=== PATIENT | female | born 1985 | race Caucasian/White ===

== ENCOUNTER 2021-11-20 10:27 | Emergency (ER) | payer SELFPAY ==
[2021-11-20] VITALS (7 sets, daily range): BP systolic 111–145; BP diastolic 65–87; PULSE 62–75; RESP 12–16; TEMP 37; O2SAT 96–99; BMI 24.9
--- NOTE | 2021-11-20 10:58 | ED_ITS ---
HPI - General: Chief complaint: OB/Uterine Contractions Stated complaint: and bleeding Time Seen by Provider: 11/20/21 10:32 Limitations: language barrier History of Present Illness: Ms Braun is a 36-year-old lady without significant past medical history presents to the emergency department due to vaginal bleeding while . She apparently had a miscarriage approximately 5 months ago and last menstrual period was in September. She has had a positive test and is approximately 2 months by her estimation. Starting yesterday she had some light spotting as well as lower abdominal cramping and radiation to the back. Denies associated urinary symptoms. Denies other associated systemic signs of illness. Intensity symptoms is mild to moderate. Amount of bleeding is less than a normal period. Other than her miscarriage no other reported complications in previous pregnancies. No other exacerbating relieving factors identified. History is somewhat limited by language barrier. The brother of the patient's sajan is at bedside and speaks Stateless as well as Pakistani. Unfortunately our normal phone that does interpretation is missing. Onset (ago): day(s) Pain Consistency: intermittent Location: pelvis Severity: mild Quality: Cramping Radiation: other Vaginal bleeding: light Patient : Yes OB History - Current : no complications OB History - Previous Pregnancies: other Associated symptoms: Reports no associated symptoms Related Data: : 6 Review of Systems General: Reports: 10 or more systems reviewed and unremarkable except in HPI and below PFSH ED PFSH: Medical History (Updated 11/20/21 @ 16:30 by Jonathon Johnston MD) No significant past medical history Surgical History (Updated 11/20/21 @ 11:21 by Jonathon Johnston MD) No significant past surgical history Social History (Updated 11/20/21 @ 11:21 by Jonathon Johnston MD) Smoking and tobacco status: never smoked Female Reproductive History: : 6 Physical Exam Const: COMMON NORMALS: alert GENERAL APPEARANCE: cooperative and well developed HENMT: COMMON NORMALS: normocephalic and atraumatic HEAD & SCALP: normocephalic and atraumatic Eye: COMMON NORMALS: conjunctivae normal CONJUNCTIVA: Yes conjunctivae normal SCLERA: sclerae normal Neck/C-Spine: COMMON NORMALS: supple GENERAL: Yes trachea midline Resp: COMMON NORMALS: normal respiratory effort and clear to auscultation bilaterally EFFORT & INSPECTION: Yes able to speak in complete sentences AUSCULTATION: clear to auscultation bilaterally Cardio: COMMON NORMALS: regular rate and regular rhythm RATE: regular rate RHYTHM: regular rhythm GI: COMMON NORMALS: Soft to palpation PALPATION: Yes Soft to palpation, Yes Tenderness to palpation present (GI) Details: other (suprapubic), No Guarding due to palpation present (GI) and No Rigid due to palpation : OTHER: Pelvic exam performed with percussion instructor present. External genitals unremarkable, vagina normal without lesions, scant blood in vaginal vault. Small amount of yellowish liquid discharge in the vagina. Cervix identified and closed without abnormality identified There is right adnexal tenderness to bimanual exam. Extremity: GENERAL: Yes normal exam except as noted and No edema Neuro: COMMON NORMALS: moves all extremities SENSORIUM/ORIENTATION: Yes alert and No Orientation impaired Psych: COMMON NORMALS: mental status grossly normal and Normal thought process present THOUGHT PROCESS: Normal thought process present Course ED course: - Patient was seen and evaluated by me at bedside - Patient placed on cardiac monitors, IV access obtained - Initial evaluation notable for exam as above - For initial [facility] telephone environmental geologist services unavailable however for subsequent portions including verification after of [facility] telephone environmental geologist service used. - Labs notable for no leukocytosis. Beta hCG is negative. - Pelvic exam performed and based on adnexal tenderness imaging is warranted. Clue cells identified on wet prep. Patient will be treated for bacterial vaginosis - Imaging notable for ovarian cysts and right ovarian follicles - Upon serial reexamination after treatment the patient was similar - Based on patient history, evaluation, labs, and imaging as interpreted the most likely cause of the patient's condition is unclear. If she had a accurate positive test she appears to have had a miscarriage though given negative beta hCG this is likely not the explanation for her symptoms. Bacterial vaginosis is present and will be treated. - The results of ED evaluation were discussed with the patient by telephone environmental geologist services including prescriptions and/or symptomatic cares (if applicable) including appropriate and responsible use, followup plan, and return precautions. The patient verbalized understanding and felt safe for discharge. All questions answered. - Patient discharged in satisfactory condition. Note: Click bubbles or prepopulated cordero in note writing are used for assistance with data collection and billing and are inherently more limited than narrative and other text portions of this note. Please use narrative for additional cl inical history and defer to narrative/free test for any case of contradictory information. If information appears in only free text or click bubble it should be considered present or absent as reported. Please contact note chart writer for clarifications of clinical information or contradictory information. MDM is a brief summary, contradictory or erroneous seeming information should be clarified and full note should be reviewed. Vital Signs: Vital signs: Vital Signs Temperature 98.6 F 11/20/21 10:36 Pulse Rate 62 11/20/21 15:00 Respiratory Rate 12 11/20/21 13:14 Blood Pressure 127/87 11/20/21 16:00 Pulse Oximetry 96 11/20/21 16:00 MDM - OB/Uterine Contractions Medical Decision Making 36-year-old lady with reported history of positive test presenting with 2-day history of abdominal pain and vaginal bleeding. Beta hCG negative. Ultrasound negative. Clue cells present on wet prep. Patient satisfactory for outpatient management with antibiotics and PCP follow-up. Medical Records I reviewed the patient's medical records. Lab Data I reviewed the patient's lab results. : 11/20/21 11:13 11/20/21 11:13 Radiology Impressions Transvaginal US 11/20/21 13:07 IMPRESSION: 1. LEFT ovarian cyst with daughter cyst. The entire complex measures 3.9 x 4.0 x 2.2 cm. 2. Small RIGHT ovarian follicles. Laboratory Results WBC 5.7 10^3/uL (4.0-10.0) 11/20/21 11:13 RBC 3.92 10^6/uL (4.1-5.3) L 11/20/21 11:13 Hgb 11.6 g/dL (11.5-15.3) 11/20/21 11:13 Hct 35.4 % (37.0-47.0) L 11/20/21 11:13 MCV 90.3 fl (81-99) 11/20/21 11:13 MCH 29.6 pg (28.0-34.0) 11/20/21 11:13 MCHC 32.8 g/dL (30.0-36.0) 11/20/21 11:13 RDW 13.6 % (12.1-15.1) 11/20/21 11:13 Plt Count 176 10^3/cmm (130-400) 11/20/21 11:13 MPV 12.0 fL (7.4-10.4) H 11/20/21 11:13 Neut % (Auto) 57.6 % 11/20/21 11:13 Lymph % (Auto) 30.9 % 11/20/21 11:13 [facility] % (Auto) 7.4 % 11/20/21 11:13 Eos % (Auto) 3.0 % 11/20/21 11:13 Baso % (Auto) 0.7 % 11/20/21 11:13 Neut # (Auto) 3.28 10^3/uL (1.8-7.7) 11/20/21 11:13 Lymph # (Auto) 1.8 10^3/uL (0.8-4.8) 11/20/21 11:13 [facility] # (Auto) 0.4 10^3/uL (0.2-0.9) 11/20/21 11:13 Eos # (Auto) 0.2 10^3/uL (0.0-0.8) 11/20/21 11:13 Baso # (Auto) 0.0 10^3/uL (0.0-0.1) 11/20/21 11:13 Nucleated RBC % (auto) 0 % 11/20/21 11:13 Nucleated RBCs # 0.0 /100WBC 11/20/21 11:13 Sodium 140 mmol/L (136-145) 11/20/21 11:13 Potassium 3.9 mmol/L (3.5-5.1) 11/20/21 11:13 Chloride 107 mmol/L (98-107) 11/20/21 11:13 Carbon Dioxide 23 mmol/L (22-29) 11/20/21 11:13 Anion Gap 13.9 (5-19) 11/20/21 11:13 BUN 14 mg/dL (6-20) 11/20/21 11:13 Creatinine 0.5 mg/dL (0.5-0.9) 11/20/21 11:13 GFR Calculation 141.2 mL/min (90-130) H 11/20/21 11:13 Glucose 91 mg/dL (65-115) 11/20/21 11:13 Calculated Osmolality 290 mOsm/kg (285-295) 11/20/21 11:13 Calcium 9.2 mg/dL (8.5-10.5) 11/20/21 11:13 Total Bilirubin 0.3 mg/dL (0.15-1.2) 11/20/21 11:13 AST 20 U/L (0-32) 11/20/21 11:13 ALT 19 U/L (0-33) 11/20/21 11:13 Alkaline Phosphatase 70 IU/L (35-105) 11/20/21 11:13 Total Protein 6.7 g/dL (6.6-8.7) 11/20/21 11:13 Albumin 4.0 g/dL (3.5-5.2) 11/20/21 11:13 Globulin 2.7 g/dL (1.3-4.6) 11/20/21 11:13 Lipase 36 U/L (13-60) 11/20/21 11:13 Ser , Semi-Qnt 0.50 mIU/mL 11/20/21 11:13 Urine Color Yellow (Yellow) 11/20/21 11:20 Urine Appearance Clear (CLEAR) 11/20/21 11:20 Urine pH 6 (5-7) 11/20/21 11:20 Ur Specific [place] 1.020 (1.005-1.030) 11/20/21 11:20 Urine Protein Neg (Negative) 11/20/21 11:20 Urine Glucose (UA) Norm (Normal) 11/20/21 11:20 Urine Ketones Negative (Negative) 11/20/21 11:20 Urine Blood 2+ (Negative) H 11/20/21 11:20 Urine Nitrate Negative (Negative) 11/20/21 11:20 Urine Bilirubin Neg (Negative) 11/20/21 11:20 Urine Urobilinogen Neg mg/dL (Negative) 11/20/21 11:20 Ur Leukocyte Esterase Negative (Negative) 11/20/21 11:20 Urine RBC Rare /hpf (0-2) 11/20/21 11:20 Urine WBC Rare /hpf (0-5) 11/20/21 11:20 Ur Squamous Epith Cells 0-4 /hpf (0-5) H 11/20/21 11:20 Amorphous Sediment 1+ /hpf 11/20/21 11:20 Urine Bacteria Trace /hpf (NONE) 02/10/22 11:20 Urine Mucus 1+ /hpf 11/20/21 11:20 Blood Type O Positive 11/20/21 11:13 Rho(D) Type Positive 11/20/21 11:13 Discharge Plan Discharge Patient Disposition: Home Clinical Impression: Abdominal pain, Abnormal vaginal bleeding, Bacterial vaginosis, Miscarriage, Hematuria Condition: Stable Prescriptions: New Flagyl 500 mg tablet 500 mg PO BID 7 Days Qty: 14 0RF Discharge Orders: Discharge ED (Routine); Ordered 11/20/21 Ordered By: Jonathon Johnston Discharge Diet: Usual diet Discharge Activity: Resume usual activity Patient Instructions: Miscarriage (ED), Bacterial Vaginosis (ED), Abdominal Pain (ED) Activity Restrictions/Additional Instructions: You for visiting the emergency department. You were seen and evaluated for abdominal pain and vaginal bleeding. Your test in the emergency department is negative. It is unclear whether your previously positive test was an error or if at some point you had a miscarriage. You do have bacterial vaginosis which will be treated with antibiotics and can cause the cramping and bleeding that you are describing. This is not a sexually transmitted infection however is an infection caused by imbalance and normal bacteria within the vagina. Ultrasound did reveal left-sided ovarian cysts. I recommend follow-up with a [facility] OPERATOR physician. Ovarian cysts are usually benign however at times require further evaluation. Please follow-up with your primary care provider. Please establish with a primary care provider if you do not currently have one. Please return to the emergency department for worsening symptoms, uncontrolled abdominal pain, heavy vaginal bleeding, or anything else that you are concerned about and feel needs emergency department evaluation. Usted por visitar el departamento de emergencias. Fue vista y evaluada por dolor abdominal y sangrado vaginal. Rogers prueba de embarazo en el departamento de emergencias es negativa. No est? cleo si rogers prueba de embarazo previamente positiva fue un error o si en alg?n momento tuvo un aborto espont?anil. Tiene vaginosis bacteriana que se tratar? con antibi?ticos y puede causar los calambres y el sangrado que est? describiendo. Esta no es gilberto infecci?n de transmisi?n sexual; sin embargo, es gilberto infecci?n causada por un desequilibrio y bacterias normales dentro de la vagina. La ecograf?a revel? quistes ov?ricos del lado dahiana. Recomiendo el seguimiento con un m?dico ginec?logo. Los quistes ov?ricos suelen ser benignos, sin embargo, a veces requieren gilberto evaluaci?n adicional. Por favor, dary un seguimiento con rogers proveedor de atenci?n primaria. Establezca con un proveedor de atenci?n primaria si actualmente no tiene mariola. Regrese al departamento de emergencias si los s?ntomas empeoran, dolor abdominal no controlado, sangrado vaginal abundante o cualquier otra cosa que le preocupe y sienta que necesita gilberto evaluaci?n del departamento de emergencias. Print Language: Pakistani Coding Level of Care Code ED Hyperbaric Technician for Magi Fwd Exam Comprehensive
[2021-11-20 11:22] LABS: Basophils % 0.7 %; Eosinophils # 0.2 10^3/uL (0.0-0.8); Hematocrit 35.4 % (37.0-47.0); Hemoglobin 11.6 g/dL (11.5-15.3); Lymphocytes # 1.8 10^3/uL (0.8-4.8); Lymphocytes % 30.9 %; Mean Corpuscular HGB Conc 32.8 g/dL (30.0-36.0); Mean Corpuscular Hemoglobin 29.6 pg (28.0-34.0); Mean Corpuscular Volume 90.3 fl (81-99); Monocytes # 0.4 10^3/uL (0.2-0.9); Monocytes % 7.4 %; Neutrophils # 3.28 10^3/uL (1.8-7.7); Neutrophils % 57.6 %; Nucleated Red Blood Cells % 0 %; Platelet Count 176 10^3/cmm (130-400); Red Blood Count 3.92 10^6/uL (4.1-5.3); Red Cell Distribution Width 13.6 % (12.1-15.1); White Blood Count 5.7 10^3/uL (4.0-10.0)
[2021-11-20 11:36] LABS: Add Urine Microscopic? YES; Bacteria Urine TRACE /hpf; Bilirubin Urine Neg (Negative); Blood Urine 2+ (Negative); Glucose Urine UA Norm (Normal); Ketones Urine Negative (Negative); Leukocyte Esterase Urine Negative (Negative); Mucus Urine 1+ /hpf; Nitrate Urine Negative (Negative); Protein Urine Neg (Negative); RBC Urine RARE /hpf (0-2); Squamous Epithelial Cell Urine 0-4 /hpf (0-5); Urine Appearance Clear (CLEAR); Urine Color Yellow (Yellow); Urobilinogen Urine Neg (Negative); WBC Urine RARE /hpf (0-5); pH Urine 6 (5-7)
[2021-11-20 11:37] LABS: Add Urine Culture? No; Amorphous Sediment Urine 1+ /hpf
[2021-11-20 12:26] LABS: Alanine Aminotransferase 19 U/L (0-33); Alkaline Phosphatase 70 IU/L (35-105); Anion Gap 13.9 (5-19); Aspartate Amino Transferase 20 U/L (0-32); Blood Urea Nitrogen 14 mg/dL (6-20); Calcium 9.2 mg/dL (8.5-10.5); Carbon Dioxide 23 mmol/L (22-29); Chloride 107 mmol/L (98-107); Globulin 2.7 g/dL (1.3-4.6); Glomerular Filtration Rate 141.2 mL/min (90-130); Glucose 91 mg/dL (65-115); Lipase 36 U/L (13-60); Osmolality Calculated 290 mOsm/kg (285-295); Potassium 3.9 mmol/L (3.5-5.1); Sodium 140 mmol/L (136-145); Total Bilirubin 0.3 mg/dL (0.15-1.2); Total Protein 6.7 g/dL (6.6-8.7)
--- NOTE | 2021-11-20 13:07 | US_ITS ---
WS: [id number] TRANSVAGINAL PELVIC ULTRASOUND HISTORY: vaginal bleeding, R adnexal tenderness COMPARISON: None available. Uterus: 9.2 cm x 4.7 cm x 5.0 cm. Mildly enlarged uterus is anteverted. No fibroid identified the yumiko metrium is poorly visualized. Endometrium: 0.4 cm. Poorly visualized but no abnormality. Right ovary: 2.7 cm x 2.5 cm x 2.5 cm. Normal size ovary. Multiple small follicles. Normal vascularit y. Left ovary: 4.5 cm x 4.5 cm x 2.6 cm. Ovaries slightly enlarged. There is a minimally complex cyst as sociated with the ovary with a daughter cysts. The entire cyst measures 3.9 x 4.0 x 2.2 cm. Small dusty unt of adjacent ovarian tissue demonstrates vascularity. Tiny amount of free fluid in the cul-de-sac. US/US transvaginal [id number] IMPRESSION: 1. LEFT ovarian cyst with daughter cyst. The entire complex measures 3.9 x 4.0 x 2.2 cm. 2. Small RIGHT ovarian follicles.
--- NOTE | 2021-11-20 16:51 | PC.NURSE ---
PATIENT DISCHARGED BY OTHER STAFF- PATIENT CHANGED AND AMBULATED TO [facility]
== END 2021-11-20 16:52 | disposition home or self-care (01) ==
PROVIDERS: Emergency Provider Emergency Medicine
DX: O03.9 Complete or unspecified spontaneous abortion without complication (principal); O23.591 Infection of other part of genital tract in pregnancy, first trimester; O26.891 Other specified pregnancy related conditions, first trimester; R31.9 Hematuria, unspecified; Z3A.00 Weeks of gestation of pregnancy not specified
CPT/HCPCS: 76830; 80053; 81001; 83690; 84702; 85025; 86900; 87210; 99283